=== PATIENT | female | born 2000 | race Caucasian/White ===

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

== ENCOUNTER 2018-04-04 20:58 | Emergency (ER) | payer OTHER ==
[~2018-04-04] VITALS: Ht 157.5 cm; Wt 53.6 kg
[2018-04-04 21:04] VITALS: BP 138/93
--- NOTE | 2018-04-04 21:09 | NUR ---
URINE COLLECTED. PT RETURNED TO LOBBY.
--- NOTE | 2018-04-04 21:18 | NUR ---
PT TAKEN TO BED 9
--- NOTE | 2018-04-04 21:20 | NUR ---
PATIENT IS A 17 Y/O FEMALE WHO PRESENTS TO THE ED C/O DOG BITE. PT STATES THAT SHE WAS BITTEN BY HER FRIENDS DOG (SMALL, WHITE DOG, BREED UNKNOWN). PT DENIES PAIN AT THIS TIME. NOTED SMALL AREA OF REDNESS ON CHIN, NO OPEN BLEEDING, NO OBVIOUS DEFORMITY. PT DENIES CP, SOB, N/V/D. PT AAOX4, RR EVEN/UNLABORED. PT REPOSITIONED FOR COMFORT, BED IN LOWEST POSITION. ER ROSE MARY OLIVIER NOTIFIED. WILL CONTINUE TO MONITOR.
[2018-04-04 22:22] VITALS: BP 127/87
--- NOTE | 2018-04-04 22:22 | NUR ---
Patient discharged with v/s stable. Written and verbal after care instructions given and explained. Patient alert, oriented and verbalized understanding of instructions. Ambulatory with steady gait. All questions addressed prior to discharge. ID band removed. Patient advised to follow up with PMD. Rx of AUGMENTIN 875 MG, BACITRACIN 500UNIT/G AND ACETAMINOPHEN 500MG given. Patient educated on indication of medication including possible reaction and side effects. Opportunity to ask questions provided and answered.
== END 2018-04-04 22:22 | disposition home or self-care (01) ==
LOC: MED 20:58
DX: S01.83XA Puncture wound without foreign body of other part of head, initial encounter (principal); J45.909 Unspecified asthma, uncomplicated; W54.0XXA Bitten by dog, initial encounter; Y93.89 Activity, other specified; Y92.89 Other specified places as the place of occurrence of the external cause; Y99.8 Other external cause status
CPT/HCPCS: 81002; 81025; 99283

== ENCOUNTER 2019-03-26 13:02 | Emergency (ER) | payer OTHER ==
[~2019-03-26] VITALS: Ht 154.9 cm; Wt 51.3 kg
[2019-03-26 13:06] VITALS: BP 106/73
--- NOTE | 2019-03-26 13:09 | NUR ---
TRIAGED TO LOBBY; STANLEY
--- NOTE | 2019-03-26 13:49 | NUR ---
PT AMBULATED TO ER BED 04
--- NOTE | 2019-03-26 13:50 | NUR ---
BIB SELF. AAOX 4 C/O COUGH X 2 MONTHS; PRODUCTIVE. HAS TRIED TAKING NYQUIL BUT IS NOT HELPING. DENIES SOB. EQUAL PHILLIP LUNGS CLEAR UPON AUSCULTATION. HOB UP. BED SIDE RAILS UP X1. ON LOW BED POSITION, LOCKED. ER MADE AWARE OF PT STATUS.
[2019-03-26 15:13] VITALS: BP 110/70
--- NOTE | 2019-03-26 15:13 | NUR ---
Patient discharged with v/s stable. Written and verbal after care instructions given and explained. Patient alert, oriented and verbalized understanding of instructions. Ambulatory with steady gait. All questions addressed prior to discharge. ID band removed. Patient advised to follow up with PMD. Rx of ROBITUSSIN given. Patient educated on indication of medication including possible reaction and side effects. Opportunity to ask questions provided and answered.
== END 2019-03-26 15:13 | disposition home or self-care (01) ==
LOC: MED 13:02
DX: J06.9 Acute upper respiratory infection, unspecified (principal); J45.909 Unspecified asthma, uncomplicated
CPT/HCPCS: 71046; 99283